=== PATIENT | male | born 1945 | race Caucasian/White ===

== ENCOUNTER 2020-11-27 08:25 | Day surgery (SDC) | payer OTHER ==
[2020-11-20 15:52] LABS: BASOPHILS # (AUTO) 0.1 X10'3 (0-0.2); BASOPHILS % (AUTO) 0.9 % (0-1); EOSINOPHILS # (AUTO) 0.3 X10'3 (0-0.9); EOSINOPHILS % (AUTO) 4.1 % (0-6); LYMPHOCYTES # (AUTO) 1.9 X10'3 (1.1-4.8); LYMPHOCYTES % (AUTO) 24.5 % (21-51); MEAN CORPUSCULAR HEMOGLOBIN 31.6 PG (27.0-31.0); MEAN CORPUSCULAR HGB CONC 33.2 g/dL (33.0-36.5); MEAN CORPUSCULAR VOLUME 95.4 FL (78-98); MEAN PLATELET VOLUME 9.1 FL (7.4-10.4); MONOCYTES # (AUTO) 0.8 X10'3 (0-0.9); MONOCYTES % (AUTO) 10.4 % (2-12); NEUTROPHILS # (AUTO) 4.6 X10'3 (1.8-7.7); NEUTROPHILS % (AUTO) 60.1 % (42-75); PRE OP HEMATOCRIT 38.2 % (42.0-52.0); PRE OP HEMOGLOBIN 12.7 g/dL (14.0-17.9); PRE OP PLATELET COUNT 170 X10'3 (140-440); RED CELL DISTRIBUTION WIDTH 13.1 % (11.5-14.5)
[2020-11-20 16:45] LABS: ALBUMIN 3.5 G/DL (3.4-5.0); ALKALINE PHOSPHATASE 84 IU/L (46-116); BLOOD UREA NITROGEN 23 MG/DL (7-18); BUN/CREATININE RATIO 16.8 (5.4-32.0); CALCIUM 8.6 MG/DL (8.5-10.1); CHLORIDE 108 MMOL/L (99-107); CREATININE 1.37 MG/DL (0.60-1.10); PRE OP ALT 19 U/L (30-65); PRE OP ANION GAP 10 (8-16); PRE OP AST 9 U/L (10-37); PRE OP BILIRUB, TOTAL 0.3 MG/DL (0.0-1.0); PRE OP GLUCOSE 88 MG/DL (70-104); PRE OP POTASSIUM 4.3 MMOL/L (3.4-5.1); PRE OP SODIUM 142 MMOL/L (135-145); TOTAL CARBON DIOXIDE 23.9 MMOL/L (24-32); eGFR 51 ML/MIN
[2020-11-20 17:35] LABS: REACTIVE LYMPHOCYTES % 0 % (0-0); TOTAL CELLS COUNTED 200
[2020-11-20 17:38] LABS: PLATELET ESTIMATE NORMAL
[2020-11-20 17:52] LABS: BURR CELLS FEW; ELLIPTOCYTES FEW
[2020-11-27] VITALS (7 sets, daily range): BP systolic 127–144; BP diastolic 72–77
[~2020-11-27] VITALS: Ht 177.8 cm; Wt 78.0 kg
[~2020-11-27 08:25] MED LIST: ALBU0.63 NEB; ALBU8HFA PO; ATOR40TA PO; BUDE10.2 INH; BUPIVAcaine/PF 2.5 mg/ml (0.25%) 30ml vial ONE; CHOL100046 PO; CYCL-394 PO; FLEC50TA28 PO; GABA600T13 PO; HYDR-3972 PO; IPRA4AER IH; PANT-47 PO; ROPI1TAB6 PO; albuterol 2.5 MG/3 ML nebule NEB ONE; cefazolin/dext.iso 2gm/100ml IV ONE; famotidine 20mg tablet PO ONE; ringers solution, lacted 1,000 ML IV SCH
[2020-11-27] MEDS ORDERED: ASPI-1265 PO (10:51)
[2020-11-27] MEDS ORDERED: CLON-528 PO (10:53)
[2020-11-27] MEDS ORDERED: ondansetron/PF 4mg/2ml inj IV PRN (11:30)
[2020-11-27] MEDS ORDERED: HYDROmorphone/PF 0.2 MG/ML SYRINGE IV PRN ×2 (11:30)
[2020-11-27] MEDS ORDERED: labetalol 20mg/4ml (5mg/ml) syringe IV PRN (11:30)
[2020-11-27] MEDS ORDERED: proCHLORperazine 10 MG/2 ml inj IV PRN (11:30)
[2020-11-27] MEDS ORDERED: hydrALAZINE 20mg/ml inj. IV PRN (11:30)
[2020-11-27] MEDS ORDERED: ringers solution, lacted 1,000 ML IV SCH (11:30)
[2020-11-27] MEDS ORDERED: acetaminophen 1,000mg/100ml IV 100 ML IV PRN (11:30)
[2020-11-27] MEDS ORDERED: meperidine/PF 25mg/ml syringe IV PRN ×3 (11:30)
[2020-11-27] MEDS ORDERED: fentaNYL/PF 50MCG/1 ML 2ML syringe ONE (11:53)
[2020-11-27] MEDS ORDERED: midazolam 1 mg/ML 2ml injection ONE (11:54)
[2020-11-27] MEDS ORDERED: LIDOcaine 1%/PF 5ML 10 MG/ML VIAL ONE (12:05)
[2020-11-27] MEDS ORDERED: propofol inj 20 ML IV ONE (12:05)
--- NOTE | 2020-11-27 12:30 | NUR ---
ADMITTED TO PACU FROM OR ACCOMPANIED BY ANESTHESIA. INTIAL PHYSICAL ASSESSMENT DONE AND RECORDED. REPORT RECEIVED FROM ANESTHESIA.
--- NOTE | 2020-11-27 14:48 | NUR ---
DISCHARGE CRITERIA MET, DISCHARGE INSTRUCTIONS GIVEN, DEMONSTRATES VERBAL UNDERSTANDING. DISCHARGED HOME IN GOOD CONDITION
== END 2020-11-27 13:30 | disposition home or self-care (01) ==
LOC: PAS 08:25
PROVIDERS: ATTEND Orthopaedic Surgery Hand Surgery
DX: D21.11 Benign neoplasm of connective and other soft tissue of right upper limb, including shoulder (principal); J44.9 Chronic obstructive pulmonary disease, unspecified; G47.33 Obstructive sleep apnea (adult) (pediatric); K21.9 Gastro-esophageal reflux disease without esophagitis; G25.81 Restless legs syndrome; I10 Essential (primary) hypertension; Z88.5 Allergy status to narcotic agent; Z20.822 Contact with and (suspected) exposure to COVID-19; Z85.46 Personal history of malignant neoplasm of prostate; Z87.891 Personal history of nicotine dependence; Z98.890 Other specified postprocedural states
CPT/HCPCS: 26116; 36415; 80053; 82948; 85025; 93005; 94640; 94760; J2250; J2704; J3010; J3490; J7120; U0003; U0005; 85007; A4215; A4618; A7000

== ENCOUNTER 2021-12-10 09:07 | Day surgery (SDC) | payer OTHER ==
[2021-12-04 15:31] LABS: BASOPHILS % (AUTO) 0.5 % (0-1); EOSINOPHILS # (AUTO) 0.4 X10'3 (0-0.9); EOSINOPHILS % (AUTO) 4.6 % (0-6); LYMPHOCYTES # (AUTO) 2.1 X10'3 (1.1-4.8); LYMPHOCYTES % (AUTO) 25.1 % (21-51); MEAN CORPUSCULAR HEMOGLOBIN 30.8 PG (27.0-31.0); MEAN CORPUSCULAR HGB CONC 33.3 g/dL (33.0-36.5); MEAN CORPUSCULAR VOLUME 92.4 FL (78-98); MEAN PLATELET VOLUME 10.4 FL (7.4-10.4); MONOCYTES # (AUTO) 0.8 X10'3 (0-0.9); MONOCYTES % (AUTO) 9.8 % (2-12); NEUTROPHILS # (AUTO) 5.1 X10'3 (1.8-7.7); PRE OP HEMATOCRIT 35.5 % (42.0-52.0); PRE OP HEMOGLOBIN 11.8 g/dL (14.0-17.9); PRE OP PLATELET COUNT 168 X10'3 (140-440); RED BLOOD COUNT 3.84 X10'6 (4.70-6.10); RED CELL DISTRIBUTION WIDTH 13.5 % (11.5-14.5)
[2021-12-04 15:49] LABS: ALBUMIN 3.3 G/DL (3.4-5.0); ALBUMIN/GLOBULIN RATIO 0.9 (1.1-1.5); ALKALINE PHOSPHATASE 86 IU/L (46-116); BLOOD UREA NITROGEN 17 MG/DL (7-18); BUN/CREATININE RATIO 12.5 (5.4-32.0); CALCIUM 8.1 MG/DL (8.5-10.1); CHLORIDE 111 MMOL/L (99-107); CREATININE 1.36 MG/DL (0.60-1.10); PRE OP ALT 18 U/L (30-65); PRE OP ANION GAP 7 (8-16); PRE OP AST 11 U/L (10-37); PRE OP BILIRUB, TOTAL 0.5 MG/DL (0.0-1.0); PRE OP GLUCOSE 90 MG/DL (70-104); PRE OP POTASSIUM 4.5 MMOL/L (3.4-5.1); PRE OP SODIUM 142 MMOL/L (135-145); TOTAL CARBON DIOXIDE 24.2 MMOL/L (24-32); TOTAL PROTEIN 6.8 G/DL (6.4-8.2); eGFR 51 ML/MIN
[~2021-12-10] VITALS: Ht 177.8 cm; Wt 194.0 kg
[2021-12-10] VITALS (10 sets, daily range): BP systolic 113–151; BP diastolic 61–75
[~2021-12-10 09:07] MED LIST changes: +ASPI-1265 PO; +ATEN-169 PO; -BUPIVAcaine/PF 2.5 mg/ml (0.25%) 30ml vial ONE; +CLOT15CR73 TP; +CYAN100087 PO; +DOCUMENT DATE & TIME OF BETA-BLOCKER PO ONE; +FLUO15OI15 TP; -GABA600T13 PO; +LYR25C PO; +MUPI22OI30 TP; -albuterol 2.5 MG/3 ML nebule NEB ONE; +ceFAZolin inj. 2,000 MG in dextrose 5%-water 100 ML IV ONE; -cefazolin/dext.iso 2gm/100ml IV ONE
[2021-12-10] MEDS ORDERED: LIDOcaine 0.5% (5mg/ml) 50ml vial ONE (10:26)
[2021-12-10] MEDS ORDERED: BUPIVAcaine 0.5% inj/PF 30 ML ONE (10:31)
[2021-12-10] MEDS ORDERED: fentaNYL/PF 50MCG/1 ML 2ML syringe ONE (10:31)
[2021-12-10] MEDS ORDERED: midazolam 1 mg/ML 2ml injection ONE (10:32)
[2021-12-10] MEDS ORDERED: propofol inj 20 ML IV ONE (11:16)
--- NOTE | 2021-12-10 11:23 | NUR ---
Received from OR via [facility] IN STABLE CONDITION , accompanied by Anesthesiologist and HARDWARE DESIGN ENGINEER report given by HARDWARE DESIGN ENGINEER AND Anesthesiolgist. Addendum: 12/10/21 at 1144 by Jyothi Chamberlain RN Amended: Links added.
--- NOTE | 2021-12-10 13:03 | NUR ---
PATIENT DISCHARGED FROM PACU IN STABLE CONDITION AFTER WRITTEN AND VERBAL DISCHARGE INSTRUCTIONS GIVEN. PATIENT GAVE VERBAL UNDERSTANDING OF INSTRUCTIONS GIVEN. PATIENT LEFT FACILITY VIA WHEEL CHAIR WITH RN. Addendum: 12/10/21 at 1315 by Jyothi Chamberlain RN Amended: Links added.
== END 2021-12-10 13:03 | disposition home or self-care (01) ==
LOC: PAS 09:07
PROVIDERS: ATTEND Orthopaedic Surgery Hand Surgery
DX: M65.342 Trigger finger, left ring finger (principal); M65.332 Trigger finger, left middle finger; M72.0 Palmar fascial fibromatosis [Dupuytren]; J44.9 Chronic obstructive pulmonary disease, unspecified; I10 Essential (primary) hypertension; G43.909 Migraine, unspecified, not intractable, without status migrainosus; G47.33 Obstructive sleep apnea (adult) (pediatric); Z85.46 Personal history of malignant neoplasm of prostate; Z20.822 Contact with and (suspected) exposure to COVID-19; Z88.5 Allergy status to narcotic agent; Z79.899 Other long term (current) drug therapy; Z98.890 Other specified postprocedural states; Z90.79 Acquired absence of other genital organ(s); Z87.891 Personal history of nicotine dependence
CPT/HCPCS: 26055; 36415; 80053; 85025; 93005; A6222; J0690; J2250; J2704; J3010; J3490; J7030; J7060; J7120; S0020; U0003; U0005; Z7506; Z7512; A4215; A6449

== ENCOUNTER 2022-05-06 05:47 | Day surgery (SDC) | payer OTHER ==
[2022-05-02 16:11] LABS: BASOPHILS # (AUTO) 0.1 X10'3 (0-0.2); BASOPHILS % (AUTO) 0.8 % (0-1); EOSINOPHILS # (AUTO) 0.4 X10'3 (0-0.9); EOSINOPHILS % (AUTO) 5.2 % (0-6); LYMPHOCYTES # (AUTO) 2.3 X10'3 (1.1-4.8); LYMPHOCYTES % (AUTO) 27.2 % (21-51); MEAN CORPUSCULAR HEMOGLOBIN 31.1 PG (27.0-31.0); MEAN CORPUSCULAR HGB CONC 33.3 g/dL (33.0-36.5); MEAN CORPUSCULAR VOLUME 93.2 FL (78-98); MONOCYTES # (AUTO) 0.9 X10'3 (0-0.9); MONOCYTES % (AUTO) 11.3 % (2-12); NEUTROPHILS # (AUTO) 4.6 X10'3 (1.8-7.7); NEUTROPHILS % (AUTO) 55.5 % (42-75); PRE OP HEMATOCRIT 35.6 % (42.0-52.0); PRE OP HEMOGLOBIN 11.9 g/dL (14.0-17.9); PRE OP PLATELET COUNT 152 X10'3 (140-440); RED BLOOD COUNT 3.82 X10'6 (4.70-6.10); RED CELL DISTRIBUTION WIDTH 13.3 % (11.5-14.5)
[2022-05-02 16:24] LABS: ALBUMIN 3.5 G/DL (3.4-5.0); ALKALINE PHOSPHATASE 89 IU/L (46-116); BLOOD UREA NITROGEN 25 MG/DL (7-18); CHLORIDE 107 MMOL/L (99-107); CREATININE 1.39 MG/DL (0.60-1.10); PRE OP ALT 19 U/L (30-65); PRE OP ANION GAP 7 (8-16); PRE OP AST 14 U/L (10-37); PRE OP BILIRUB, TOTAL 0.5 MG/DL (0.0-1.0); PRE OP GLUCOSE 92 MG/DL (70-104); PRE OP POTASSIUM 4.9 MMOL/L (3.4-5.1); PRE OP SODIUM 141 MMOL/L (135-145); TOTAL CARBON DIOXIDE 27.2 MMOL/L (24-32); TOTAL PROTEIN 7.1 G/DL (6.4-8.2); eGFR 50 ML/MIN
[2022-05-06] VITALS (11 sets, daily range): BP systolic 120–143; BP diastolic 56–81
[~2022-05-06] VITALS: Ht 175.3 cm; Wt 88.1 kg
[~2022-05-06 05:47] MED LIST changes: -ALBU0.63 NEB; -ASPI-1265 PO; -ATEN-169 PO; +ATEN-27 PO; +CLON1TAB95 PO; -CLOT15CR73 TP; -CYAN100087 PO; -FLUO15OI15 TP; +GABA-530 PO; -LYR25C PO; -MUPI22OI30 TP; +[UNRECOGNIZED DRUG - MIXTURE] INH
[2022-05-06] MEDS ORDERED: BUPIVAcaine/PF 2.5 mg/ml (0.25%) 30ml vial ONE (06:46)
[2022-05-06] MEDS ORDERED: BUPIVAcaine/PF 2.5mg/ml (0.25%) 10ml vial ONE (06:59)
[2022-05-06] MEDS ORDERED: ondansetron/PF 4mg/2ml inj IV PRN (07:15)
[2022-05-06] MEDS ORDERED: ringers solution, lacted 1,000 ML IV SCH (07:15)
[2022-05-06] MEDS ORDERED: morphine 2 MG/ML inj. syringe IV PRN (07:15)
[2022-05-06] MEDS ORDERED: hydrALAZINE 20mg/ml inj. IV PRN (07:15)
[2022-05-06] MEDS ORDERED: labetalol 20mg/4ml (5mg/ml) syringe IV PRN (07:15)
[2022-05-06] MEDS ORDERED: morphine 4 MG/ML inj SYRINge IV PRN (07:15)
[2022-05-06] MEDS ORDERED: fentaNYL/PF 50MCG/1 ML 2ML syringe IV PRN ×2 (07:15)
[2022-05-06] MEDS ORDERED: LIDOcaine 0.5% (5mg/ml) 50ml vial ONE (07:17)
[2022-05-06] MEDS ORDERED: ipratropium/albuterol 3ml nebule IH STA (07:55)
[2022-05-06] MEDS ORDERED: MIDAZolam 1 MG/ML 5ML VIAL ONE (08:24)
[2022-05-06] MEDS ORDERED: fentaNYL/PF 50MCG/1 ML 2ML syringe ONE (08:24)
--- NOTE | 2022-05-06 09:23 | NUR ---
Received from OR via [facility], accompanied by Anesthesiologist DR ESCUDERO and report given by Anesthesiolgist. PT PRESENTS WITH 20G LEFT HAND, RIGHT HAND DRESSING CDI, VSS. Addendum: 05/06/22 at 0935 by Gina Oretga RN, RN Amended: Links added.
--- NOTE | 2022-05-06 10:00 | NUR ---
PT REFUSING TO PLACE NASAL CANULA IN NOSE, PT PUTTING CANULA IN MOUTH. PT REPORTS HOME O2, HE USES 3L NC IN MOUTH. PT USES C-PAP AT HOME.
--- NOTE | 2022-05-06 10:04 | NUR ---
PT REPORTS THAT HE WILL NOT USE ICE PACK AT HOME, BUT WILL USE IT WHILE HE IS IN RECOVERY. THE BENEFITS OF ICE PACK USE WAS DISCUSSED WITH PT.
--- NOTE | 2022-05-06 10:53 | NUR ---
ALL DISCHARGE CRITERIA HAS BEEN MET. VSS, PAIN AT A TOLERABLE LEVEL, VOIDING AND ABLE TO SAFELY AMBULATE AND TRANSFER SELF. IV TAKEN OUT WITHOUT COMPLICATIONS. ALL DISCHARGE INSTRUCTIONS COVERED WITH PATIENT AND ALL QUESTIONS ANSWERED, COPY GIVEN TO PATIENT. PATIENT TAKEN OUT VIA WHEELCHAIR TO PERSONAL VEHICLE WHERE FAMILY/FRIEND DROVE PATIENT HOME. PT ADVISED TO WEAR C-PAP AT HOME WHILE RESTING, PT VERBALIZED UNDERSTANDING WITH NO FURTHER QUESTIONS AT THIS TIME. Addendum: 05/06/22 at 1104 by Gina Ortega RN, RN Amended: Links added.
== END 2022-05-06 10:53 | disposition home or self-care (01) ==
LOC: PAS 05:47
PROVIDERS: ATTEND Orthopaedic Surgery Hand Surgery
DX: M65.331 Trigger finger, right middle finger (principal); M65.311 Trigger thumb, right thumb; Z79.899 Other long term (current) drug therapy; Z98.890 Other specified postprocedural states; Z87.891 Personal history of nicotine dependence; I10 Essential (primary) hypertension; K21.9 Gastro-esophageal reflux disease without esophagitis; Z88.6 Allergy status to analgesic agent; N18.30 Chronic kidney disease, stage 3 unspecified; Z85.46 Personal history of malignant neoplasm of prostate
CPT/HCPCS: 26055; 36415; 80053; 82948; 85025; 94640; 94760; J0690; J2250; J3010; J3490; J7030; J7060; J7120; Z7506; Z7512; A4215; A4615; A6449